=== PATIENT | male | born 1985 | race Caucasian/White ===

== ENCOUNTER → 2016-08-15 | Outpatient (CLI) | payer OTHER ==
--- NOTE | 2016-08-15 11:00 | KCIC ---
PROCEDURE MRI study of the right thigh without contrast HISTORY Hamstring injury. Patient feels a knot in the mid femur area. Injured running in June. TECHNIQUE Noncontrast MRI sequences of the right thigh were performed in all 3 planes. COMPARISON None available. FINDINGS A skin marker is placed in the area of the palpable lump of the posterior medial thigh as indicated by the patient. No underlying soft tissue mass or prominent lipoma is seen. No soft tissue edema or muscle edema is evident. No abscess or fluid collection is seen. No bone marrow edema or stress fracture or fracture line or osteomyelitis or marrow infiltrative process is seen. IMPRESSION Normal study. Electronically signed by: Ulises Noriega MD (Aug 15, 2016 10:58:32)
== END | disposition home or self-care (01) ==
LOC: KCIC MRI 07:41
PROVIDERS: ATTEND Family Medicine
DX: S76.311A Strain of muscle, fascia and tendon of the posterior muscle group at thigh level, right thigh, initial encounter (principal); W19.XXXA Unspecified fall, initial encounter; Y93.89 Activity, other specified; Y92.89 Other specified places as the place of occurrence of the external cause; Y99.8 Other external cause status
CPT/HCPCS: 73718

== ENCOUNTER → 2016-08-22 | Outpatient (CLI) | payer OTHER ==
[~2016-08-22] MED LIST: ARIP2TAB PO; GABA-585 PO; GADOBUTROL 7.5 MMOL/7.5 ML VIAL INT ART ONE; IOHEXOL 300 MG/ML 50 ML VIAL. INT ART ONE; LIDOCAINE 1% Multi-Dose 20 ML VIAL. ID ONE; LOSA25TA PO; METH5TAB4 PO; NAPR250T2 PO; OMEP20TA63 PO; SERT25TA PO
--- NOTE | 2016-08-22 16:08 | KCIC ---
PROCEDURE MR arthrogram of the left shoulder HISTORY Left shoulder pain. Injury 2011. TECHNIQUE Intra-articular contrast injected prior to the scan, and reported separately. The standard 4 plane sequences were obtained including ABER positioning. COMPARISON None FINDINGS Acromioclavicular joint is intact. No evidence of rotator cuff tear. No significant fluid or contrast in the subdeltoid bursa. Tear of the anteroinferior labrum without displacement. Posterior and superior labrum are intact. Articular cartilage intact. Biceps tendon intact. Incidentally noted is a thick cord-like middle glenohumeral ligament, a normal variant. No bone lesion or acute fracture. No evidence of acute soft tissue abnormality. IMPRESSION Tear of the anteroinferior labrum. Electronically signed by: Maurice Wolfe MD (August 22, 2016 16:06:30)
--- NOTE | 2016-08-22 16:15 | KCIC ---
PROCEDURE: Left shoulder injection using fluoroscopic guidance, prior to MR. HISTORY: Shoulder pain. TECHNIQUE: The procedure was explained to the patient as were potential risks, including among others infection, bleeding or allergic reaction. All questions were answered. Informed written and verbal consent was obtained. The shoulder was prepped and draped in the usual sterile manner. Following administration of local anesthetic, a 22-gauge needle was advanced into the anterior shoulder. Following negative aspiration, 12 cc of a solution of 5cc Omnipaque-300 contrast, 5 cc 1% lidocaine, 10 cc normal saline, and 0.1 cc gadolinium was injected without difficulty. The needle was removed. There was good hemostasis at the injection site. The patient left in stable condition without immediate complication. The patient was given postprocedural instructions, and instructed to contact us or the ER if there are any complications. A single spot image is obtained. FLUOROSCOPY TIME: 18 seconds Electronically signed by: Maurice Wolfe MD (August 22, 2016 16:13:35)
== END | disposition home or self-care (01) ==
LOC: KCIC 13:01
PROVIDERS: ATTEND Family Medicine
DX: M25.512 Pain in left shoulder (principal)
CPT/HCPCS: 73040; 73222; Q9967; A9585

== ENCOUNTER → 2016-09-25 | Outpatient (CLI) | payer OTHER ==
[~2016-09-25] MED LIST changes: -GADOBUTROL 7.5 MMOL/7.5 ML VIAL INT ART ONE; -IOHEXOL 300 MG/ML 50 ML VIAL. INT ART ONE; -LIDOCAINE 1% Multi-Dose 20 ML VIAL. ID ONE
--- NOTE | 2016-09-25 16:23 | KCIC ---
MR LUMBAR SPINE Indication: low back pain with posterior thigh numbness Technique: Sagittal T2, sagittal STIR, and sagittal T1-weighted images were obtained. Additional axial T1 and T2 weighted imaging was also performed. FINDINGS: Alignment and curvature are within normal limits. No compression deformities are identified. No abnormal bone marrow signal is seen. The conus is in normal position without abnormal signal. Paravertebral soft tissues are unremarkable. Visualized intra-abdominal contents are within normal limits. Level by level analysis demonstrates no significant central spinal or neural foraminal stenosis. IMPRESSION: Unremarkable MR examination of lumbar spine. Electronically signed by: Rodger Pinon MD (09/25/2016 4:19 PM)
== END | disposition home or self-care (01) ==
LOC: KCIC MRI 14:59
PROVIDERS: ATTEND Family Medicine
DX: M54.5 Low back pain (principal); R20.0 Anesthesia of skin
CPT/HCPCS: 72148